=== PATIENT | male | born 1950 | race Caucasian/White ===

== ENCOUNTER 2020-04-18 12:37 | Day surgery (SDC) | payer OTHER ==
[~2020-04-18] VITALS: Ht 182.9 cm; Wt 125.0 kg
[2020-04-18 13:18] VITALS: BP 176/112
[2020-04-18] MEDS ORDERED: LIDOCAINE-MPF 1%, 2ML ONE (13:25)
[2020-04-18] MEDS ORDERED: CHLORHEXIDINE 15 ML UDC MM ONE (13:30)
[2020-04-18] MEDS ORDERED: LACTATED RINGERS 1,000 ML IV SCH (13:30)
[2020-04-18] MEDS ORDERED: CYAN25009 PO (13:32)
[2020-04-18] MEDS ORDERED: DIVA500T2 PO (13:32)
[2020-04-18] MEDS ORDERED: PROBIOTIC PO (13:32)
[2020-04-18] MEDS ORDERED: MULTI VITAMIN PO (13:32)
[2020-04-18] MEDS ORDERED: [UNRECOGNIZED DRUG - OTHER] PO (13:32)
[2020-04-18] MEDS ORDERED: CHOL10003 PO (13:32)
[2020-04-18] MEDS ORDERED: EPINEPHRINE 1 MG/ML, 1ML ONE (13:51)
[2020-04-18] MEDS ORDERED: BUPIVACAINE/PF 0.5% ONE (13:51)
[2020-04-18] MEDS ORDERED: LIDOCAINE-MPF 1%, 2ML INFIL ONE (14:00)
[2020-04-18] MEDS ORDERED: FENTANYL PF 250 MCG/5ML ONE (14:05)
[2020-04-18] MEDS ORDERED: ONDANSETRON 2MG/ML, 2ML IVPush PRN (15:00)
[2020-04-18] MEDS ORDERED: PROMETHAZINE 25 MG/ML, 1ML IVPush PRN (15:00)
[2020-04-18] MEDS ORDERED: ACETAMINOPHEN 325 MG TABLET PO PRN (15:00)
[2020-04-18] MEDS ORDERED: HYDROmorphone 1 MG/ML, 1ML INJ IVPush PRN (15:00)
[2020-04-18] MEDS ORDERED: FENTANYL PF 100 MCG/2ML IV PRN (15:00)
[2020-04-18] MEDS ORDERED: OXYcodone 5 MG/5 ML ORAL.SOL UDC PO PRN ×2 (15:00→15:30)
[2020-04-18] MEDS ORDERED: LABETALOL 5MG/ML, 20ML IV PRN (15:00)
[2020-04-18] MEDS ORDERED: hydrALAzine 20 MG/ML, 1ML IV PRN (15:00)
[2020-04-18] MEDS ORDERED: PROMETHAZINE 25 MG SUPP PR PRN (15:00)
[2020-04-18] MEDS ORDERED: SUCCINYLCHOLINE 20 MG/ML, 10ML ONE (15:02)
[2020-04-18] MEDS ORDERED: CEFAZOLIN 1,000 MG ONE (15:02)
[2020-04-18] MEDS ORDERED: DEXAMETHASONE 4 MG/ML, 1ML ONE (15:02)
[2020-04-18] MEDS ORDERED: ONDANSETRON 2MG/ML, 2ML ONE (15:02)
[2020-04-18] MEDS ORDERED: ROCURONIUM 10MG/ML,5ML ONE (15:02)
[2020-04-18] MEDS ORDERED: GLYCOPYRROLATE 0.2MG/1ML, 5ML ONE (15:02)
[2020-04-18] MEDS ORDERED: SUGAMMADEX 200 MG/2 ML IVPush ONE (15:02)
[2020-04-18] MEDS ORDERED: PROPOFOL 10 MG/ML, 20ML ONE (15:02)
[2020-04-18] MEDS ORDERED: NEOSTIGMINE 1 MG/ML, 10ML ONE (15:02)
[2020-04-18] MEDS ORDERED: ACETAMINOPHEN 650 MG/20.3 ML UDC ONE (15:44)
[2020-04-18] MEDS ORDERED: OXYcodone 5 MG/5 ML ORAL.SOL UDC ONE (15:44)
[2020-04-18] MEDS ORDERED: ACETAMINOPHEN 325 MG TABLET ONE (15:45)
== END 2020-04-18 18:25 | disposition home or self-care (01) ==
LOC: OUT 12:37
PROVIDERS: ATTEND Surgery
DX: K42.9 Umbilical hernia without obstruction or gangrene (principal); K43.6 Other and unspecified ventral hernia with obstruction, without gangrene; M19.90 Unspecified osteoarthritis, unspecified site; Z20.828 Contact with and (suspected) exposure to other viral communicable diseases; Z79.899 Other long term (current) drug therapy; Z87.891 Personal history of nicotine dependence; Z72.89 Other problems related to lifestyle
CPT/HCPCS: 49653; 87635; 93005; C1781; J0171; J0330; J0690; J1100; J2405; J2704; J2710; J3010; J7120; S2900